=== PATIENT | male | born 1980 | race Asian ===

== ENCOUNTER 2017-09-04 21:34 | Emergency (ER) | payer MEDICAID ==
[~2017-09-04] VITALS: Ht 160 cm; Wt 86.4 kg
[2017-09-04 21:40] VITALS: BP 125/73; PULSE 60; TEMP 98.1
== END 2017-09-04 22:30 | disposition home or self-care (01) ==
LOC: COL.ER 21:34
DX: S51.812A Laceration without foreign body of left forearm, initial encounter (principal); Z23 Encounter for immunization; W26.8XXA Contact with other sharp object(s), not elsewhere classified, initial encounter

== ENCOUNTER → 2018-06-28 | Outpatient (CLI) | payer BC, MEDICAID | LOC: COL.LAB 09:39 | DX: R68.89 Other general symptoms and signs (principal) ==

== ENCOUNTER → 2019-02-07 | Outpatient (CLI) | payer BC | LOC: COL.RAD 12:13 | DX: J06.9 Acute upper respiratory infection, unspecified (principal) ==

== ENCOUNTER → 2019-09-02 | Outpatient (CLI) | payer MEDICAID ==
[2019-09-02 15:54] LABS: BASO # 0.1 (0.0-0.2); BASO % 0.7 % (0.0-2.0); EOS # 0.1 (0.0-0.7); EOS % 1.7 % (0-4.0); GRAN % 55.4 % (42.2-75.2); HEMATOCRIT 39.5 % (42.0-52.0); HEMOGLOBIN 13.4 g/dl (13.5-18.0); LYMPH # 2.4 (1.2-3.4); MEAN CELL VOLUME 86 fl (80.0-100.0); MEAN CORPUSCULAR HEMOGLOBIN 29 pg (27.0-31.0); MEAN CORPUSCULAR HGB CONC 34 g/dl (33.0-37.0); MEAN PLATELET VOLUME 9.6 fl (7.4-10.4); MONO # 0.6 (0.1-0.6); MONO % 7.9 % (1.7-9.3); PLATELET COUNT 168 K/mm3 (130-400); RED BLOOD COUNT 4.62 M/mm3 (4.20-5.60); REDCELL DISTRIBUTION WIDTH-CV 13.3 % (11.5-14.5)
[2019-09-02 16:06] LABS: ALBUMIN 4.5 gm/dL (3.5-5.0); BILIRUBIN,TOTAL 0.5 mg/dL (0.0-1.0); CALCIUM 9.4 mg/dL (8.4-10.2); CREATININE, serum 0.8 (0.66-1.25); POTASSIUM 4.1 mmol/L (3.4-5.0); TOTAL PROTEIN 7.9 gm/dL (6.4-8.2)
== END ==
LOC: COL.RAD 14:52
PROVIDERS: Registered Nurse
DX: K59.00 Constipation, unspecified (principal); R10.9 Unspecified abdominal pain

== ENCOUNTER → 2023-02-11 13:59 | Outpatient (RCR) | payer OTHER | END | disposition home or self-care (01) | LOC: MKS.ESL.PT 01-14 10:00 | DX: M25.562 Pain in left knee (principal) ==